=== PATIENT | female | born 2005 | race Caucasian/White ===

== ENCOUNTER 2024-03-30 13:29 | Outpatient (CLI) | payer BC, SELFPAY ==
--- NOTE | ~2024-03-30 | US_ITS ---
EXAMINATION: US thyroid DATE: 03/30/2024 14:12 INDICATION: Abnormal thyroid function tests. TECHNIQUE: Multiple ultrasound images of the thyroid were obtained. COMPARISON: None. FINDINGS: The right thyroid lobe measures 4.9 x 1.8 x 1.3 cm. The left thyroid lobe measures 4.4 x 1.5 x 1.1 c m. There is normal echotexture and echogenicity throughout the thyroid gland. No discrete nodules id entified. Normal vascular flow is present. IMPRESSION: 1. Normal thyroid. Reviewed, dictated and finalized at location A. IMPRESSION: 1. Normal thyroid.
== END 2024-03-30 13:30 | disposition home or self-care (01) ==
PROVIDERS: PCP Physician Assistant; Visit Provider Physician Assistant
DX: R94.6 Abnormal results of thyroid function studies (principal)
CPT/HCPCS: 76536